=== PATIENT | male | born 1960 | race Caucasian/White ===

== ENCOUNTER 2016-12-21 13:22 | Emergency (ER) | payer OTHER ==
--- NOTE | 2016-12-21 14:20 | UC ---
Skin Complaint HPI - HPI Summary HPI Summary: Mr. Arellano is a pleasant 56 yo gentleman c/o feeling generally unwell since Tuesday (today is Tuesday), rash over arms, general ache, diarrhea (improving, no blood no melena), fatigue. Was at a bonfire Sat night, does not recall issues at that time. + hx tick bite last year, took 2 day doxycycline (no recent known bite). No urinary issues. No cough / sob / palpitations. - History of Current Complaint Chief Complaint: UCSkin Time Seen by Provider: 12/21/16 14:13 Stated Complaint: RASH Hx Obtained From: Patient Onset/Duration: Lasting Days - Allergy/Home Medications Allergies/Adverse Reactions: Allergies Allergy/AdvReac Type Severity Reaction Status Date / Time No Known Allergies Allergy Verified 12/21/16 14:05 Review of Systems Constitutional: Fatigue Skin: Rash Eyes: Negative ENT: Other - nasal congestion Respiratory: Negative Cardiovascular: Negative Gastrointestinal: Diarrhea Genitourinary: Negative Motor: Negative Neurovascular: Negative Musculoskeletal: Arthralgia Neurological: Negative Psychological: Negative All Other Systems Reviewed And Are Negative: Yes PMH/Surg Hx/FS Hx/Imm Hx Previously Healthy: Yes - tx'd for htn - Surgical History Surgical History: None - Family History Known Family History: Positive: Hypertension - Social History Alcohol Use: Occasionally Substance Use Type: None Smoking Status (MU): Never Smoked Tobacco - Immunization History Most Recent Influenza Vaccination: not yet this year Most Recent Tetanus Shot: not sure Most Recent Pneumonia Vaccination: none Physical Exam Triage Information Reviewed: Yes Appearance: Well-Nourished - sitting up. looks tired. nontoxic. NAD. Vital Signs: Initial Vital Signs Temp 97.4 F 12/21/16 14:06 Pulse 71 12/21/16 14:06 Resp 16 12/21/16 14:06 Pulse Ox 100 12/21/16 14:06 Eye Exam: Normal - grossly normal. watery eyes. ENT: Positive: TM dull, Other: - no pharyngeal redness, no sores noted Neck exam: Normal Neck: Positive: Supple, Nontender, No Lymphadenopathy - no adenopathy to neck, axillae Respiratory Exam: Normal Respiratory: Positive: Chest non-tender, Lungs clear, Normal breath sounds, No respiratory distress, No accessory muscle use Cardiovascular Exam: Normal Cardiovascular: Positive: RRR, No Murmur, Pulses Normal, Brisk Capillary Refill Abdominal Exam: Normal Abdomen Description: Positive: Nontender Bowel Sounds: Positive: Present Musculoskeletal Exam: Normal - grossly normal. moves all 4 ext's ok. c/o achiness. Neurological Exam: Normal - grossly normal Psychological Exam: Normal Skin Exam: Other - scattered papular nonblanching eruption, mainly arms and forearms. Also noted on legs. No visible on torso, neck, face. Course/Dx - Course Course Of Treatment: Etiology for eruption is unclear by immediate presentation. Consider viral exanthem vs other. Will check blood work (cbc, cmp, magnesium, lyme titer, crp, sed rate). F/u PCP or Tue. Sooner medical eval for worse or new problems in the meantime. Questions answered to the best of my ability. - Diagnoses Provider Diagnoses: rash Discharge - Discharge Plan Condition: Stable Disposition: HOME Patient Education Materials: Antihistamine (By mouth), Acute Rash (ED) Referrals: Amilcar Sauceda MD [Primary Care Provider] - Additional Instructions: Drink plenty of fluids. Avoid red wine, beer, hot showers until symptoms resolved. Double rinse clothing until symptoms resolved. Blood work today. Please follow up with Dr. Sauceda on or Tuesday for recheck. Seek medical attention sooner for worse or new problems in the meantime.
[2016-12-21 14:50] VITALS: BP 134/88
[2016-12-21 18:25] LABS: White Blood Count 2.7 10^3/ul (3.5-10.8)
[2016-12-21 18:28] LABS: Hematocrit 45 % (42-52); Mean Corpuscular Volume 92 fL (80-94)
[2016-12-21 18:40] LABS: Albumin 4.2 g/dL (3.2-5.2); C Reactive Protein 1.1 mg/L (< 5.00); Calcium 9.4 mg/dL (8.6-10.3); EGFR African American 114.1 (>60); EGFR Non-African American 88.7 (>60); Globulin 2.7 g/dL (2-4); Potassium 4.3 mmol/L (3.5-5.0); Total Bilirubin 0.6 mg/dL (0.2-1.0); Total Protein 6.9 g/dL (6.4-8.9)
[2016-12-21 18:42] LABS: Hemoglobin 15.5 g/dl (14.0-18.0); Mean Corpuscular HGB Conc 35 g/dl (31-36); Mean Corpuscular Hemoglobin 32 pg (27-31); Mean Platelet Volume 10 um3 (7.4-10.4); Red Blood Count 4.84 10^6/ul (4.0-5.4); Red Cell Distribution Width 12 % (10.5-15)
[2016-12-21 18:48] LABS: Comments Flag Yes
[2016-12-21 18:49] LABS: Add Diff/Slide Review? Manual Diff Added
--- NOTE | 2016-12-21 19:29 | UC ---
Progress - Progress Note Progress Note: CBC REVIEWED AND PT IS NEUTROPENIC AND THROMBOCYTOPENIC. ACCORDING TO OFFICE VISIT NOTE HE HAS HAD MALAISE FOR A COUPLE OF DAYS AND RASH OF UNCLEAR CAUSE. CALLED AND SPOKE TO PT ON THE PHONE. NAME AND CONFIRMED. ADVISED OF ABNORMAL LABS AND RECOMMENDED IMMEDIATE PRESENTATION TO [facility] [place] [facility] ER FOR FURTHER EVALUATION. PT VERBALIZED UNDERSTANDING AND STATES HE WILL GO. - VALERIA JIMENEZ MD.
[2016-12-21 19:53] LABS: Eosinophils % 1 % (0-6); Neutrophil % 34 % (38-83); RBC Morphology Normal (Normal); Reactive Lymph % 14 % (0-6)
[2016-12-21 19:54] LABS: Add Path Review? YES
[2016-12-21 20:02] LABS: Erythrocyte Sed Rate 17 mm/Hr (0-20)
--- NOTE | 2016-12-23 19:51 | UC ---
Progress - Progress Note Progress Note: CBC REVIEWED AND PT IS NEUTROPENIC AND THROMBOCYTOPENIC. ACCORDING TO OFFICE VISIT NOTE HE HAS HAD MALAISE FOR A COUPLE OF DAYS AND RASH OF UNCLEAR CAUSE. CALLED AND SPOKE TO PT ON THE PHONE. NAME AND CONFIRMED. ADVISED OF ABNORMAL LABS AND RECOMMENDED IMMEDIATE PRESENTATION TO [facility] [place] ER FOR FURTHER EVALUATION. PT VERBALIZED UNDERSTANDING AND STATES HE WILL GO. - VALERIA JIMENEZ MD. 12/23/16 CALL PATIENT SEE HOW HE IS DOING. LYME (-). HE WAS TOLD TO GO TO THE ER BY DR JIMENEZ.
== END 2016-12-21 14:45 | disposition home or self-care (01) ==
LOC: UCEAST 13:22
DX: R21 Rash and other nonspecific skin eruption (principal); I10 Essential (primary) hypertension
CPT/HCPCS: 36415; 80053; 83735; 85025; 85060; 85652; 86140; 86618; 99211; G0463

== ENCOUNTER 2016-12-21 20:06 | Emergency (ER) | payer OTHER ==
[2016-12-21 23:09] LABS: Hematocrit 41 % (42-52); Hemoglobin 14.6 g/dl (14.0-18.0); Mean Corpuscular HGB Conc 35 g/dl (31-36); Mean Corpuscular Hemoglobin 32 pg (27-31); Mean Corpuscular Volume 91 fL (80-94); Mean Platelet Volume 10 um3 (7.4-10.4); Red Blood Count 4.56 10^6/ul (4.0-5.4); Red Cell Distribution Width 12 % (10.5-15); White Blood Count 2.6 10^3/ul (3.5-10.8)
[2016-12-21 23:10] LABS: Comments Flag Yes
[2016-12-21 23:17] LABS: Albumin 4.1 g/dL (3.2-5.2); BUN/Creatinine Ratio 16.7 (8-20); Calcium 8.9 mg/dL (8.6-10.3); EGFR African American 132.9 (>60); EGFR Non-African American 103.3 (>60); Globulin 2.8 g/dL (2-4); Potassium 3.8 mmol/L (3.5-5.0); Total Bilirubin 0.6 mg/dL (0.2-1.0); Total Protein 6.9 g/dL (6.4-8.9)
[2016-12-21 23:30] VITALS: BP 140/95
[2016-12-22] MEDS ORDERED: DOXYcycline CAP(*) 100 MG PO ONE (00:31)
[2016-12-22 00:49] LABS: Urine Bilirubin Negative (Negative); Urine Glucose Negative (Negative); Urine Nitrite Negative (Negative)
--- NOTE | 2016-12-22 08:48 | UC ---
Progress - Progress Note Progress Note: Reviewed pt's blood results. I spoke with Luly Issa RN 08:35 Dr. Sauceda's office. He has an appt tomorrow at 14:[address] Sauceda. (Dr. Sauceda not in the office today.) Upon further chart review, I noted that Mr. Arellano did go to the ED last evening after initial blood tests came back (neutropenia). ED note not yet complete, but discharge instructions reviewed. Dr. Sauceda's office will call Mr. Arellano today to check on him.
--- NOTE | 2016-12-22 13:48 | ED ---
Martha Llanos Thomas, scribed for Gladys Baumann MD on 12/21/16 at 2145 . Complex/Multi-Sys Presentation - HPI Summary HPI Summary: The pt is a 56 y/o M accompanied by his family and presenting to the ED c/o malaise that began three days ago. He was seen today at [facility] and bloodwork was acquired for further evaluation of rash and systemic sxs of malaise, fatigue, myalgias, night sweats. When his test results revealed WBC 2.7 and Plt count 77 , he was called by [facility] and advised to present to the ED. Pt additionally c/o rash (onset two days ago), myalgia, night sweats, diarrhea (improving since onset), FERGUSON (5 days ago but none in the ED) and fatigue. Pt denies fever, SOB, cough, palpitations, dysuria, and hematuria. He reports that he was bit by a tick last year that was engorged and had to be removed by his MD, and took Doxycycline 2 tabs. He denies any recent known tick bites. PMHx: HTN, HLD. PSHx : none. SHx: no smoking, occasional alcohol use, no illicit drug use. FHx: HTN, alcoholism. He is on Lisinopril. 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 His next day of work is in two days. His PCP Dr. Sauceda. He denies alcohol use in the last five days. - History Of Current Complaint Chief Complaint: EDWeakness Time Seen by Provider: 12/21/16 21:35 Hx Obtained From: Patient, Family/Agricultural Specialist - , daughter in room Onset/Duration: Gradual Onset, Lasting Days - 3, Still Present Timing: Constant Severity Currently: Moderate Severity Initially: Moderate Character: Dull Aggravating Factor(s): None Alleviating Factor(s): None Associated Signs And Symptoms: Positive: Diarrhea, Other - POS: abnormal bloodwork (WBC 2.7, Plt count 77), rash, myalgia, night sweats, FERGUSON (5 days ago but none in the ED), fatigue; NEG: hematuria. Negative: SOB, Cough, Palpitations, Dysuria, Fever - Allergies/Home Medications Allergies/Adverse Reactions: Allergies Allergy/AdvReac Type Severity Reaction Status Date / Time No Known Allergies Allergy Verified 12/21/16 20:21 PMH/Surg Hx/FS Hx/Imm Hx Previously Healthy: No Endocrine/Hematology History: Denies: Hx Diabetes, Hx Thyroid Disease Cardiovascular History: Reports: Hx Hypercholesterolemia, Hx Hypertension - on meds Respiratory History: Denies: Hx Asthma, Hx Chronic Obstructive Pulmonary Disease (COPD) GI History: Denies: Hx Ulcer - Surgical History Surgery Procedure, Year, and Place: none Infectious Disease History: No Infectious Disease History: Denies: Hx Clostridium Difficile, Hx Hepatitis, Hx Human Immunodeficiency Virus (HIV), Hx of Known/Suspected MRSA, Hx Shingles, Hx Tuberculosis, Hx Known/ Suspected VRE, Hx Known/Suspected VRSA, History Other Infectious Disease, Traveled Outside the [place] in Last 30 Days - Family History Known Family History: Positive: Hypertension - Social History Occupation: Employed Full-time Lives: With Family Alcohol Use: Occasionally Substance Use Type: Reports: None Smoking Status (MU): Never Smoked Tobacco Review of Systems Positive: Fatigue, Skin Diaphoresis - night sweats, Other - POS: malaise (onset three days ago). Negative: Fever Negative: Palpitations Negative: Shortness Of Breath, Cough Positive: Diarrhea - improving Negative: dysuria, hematuria Positive: Myalgia Positive: Rash - macular papular, onset a couple days ago Positive: Headache - 5 days ago, none in the ED All Other Systems Reviewed And Are Negative: Yes Physical Exam Triage Information Reviewed: Yes Vital Signs On Initial Exam: Initial Vitals Temp Pulse Resp BP Pulse Ox 98.5 F 68 16 178/96 96 12/21/16 20:18 12/21/16 20:18 12/21/16 20:18 12/21/16 20:18 12/21/16 20:18 Vital Signs Reviewed: Yes Appearance: Positive: Well-Appearing - presents to ED for abnormal bloodwork, No Pain Distress, Well-Nourished Skin: Positive: Warm, Skin Color Reflects Adequate Perfusion, Other - There is a diffuse macular papular erythematous rash that blends with diffuse redness of skin. It is not on his genitals and is mostly on his sun-exposed areas. Head/Face: Positive: Normal Head/Face Inspection Eyes: Positive: Conjunctiva Clear ENT: Positive: Normal ENT inspection Respiratory/Lung Sounds: Positive: Clear to Auscultation, Breath Sounds Present , Other - No respiratory distress Cardiovascular: Positive: RRR, Pulses are Symmetrical in both Upper and Lower Extremities, Other - Brisk cap refill. Negative: Murmur Abdomen Description: Positive: Nontender, Soft Bowel Sounds: Positive: Present Male Genital Exam: Positive: normal genitalia Musculoskeletal: Positive: Strength/ROM Intact Neurological: Positive: Alert, Oriented to Person Place, Time, Facial Symmetry, Speech Normal, Other - Muscle tone normal Psychiatric: Positive: Normal - Myra Coma Scale Coma Scale Total: 15 Diagnostics - Vital Signs Vital Signs Temp Pulse Resp BP Pulse Ox 12/21/16 20:21 98.5 F 68 16 178/96 96 12/21/16 20:18 98.5 F 68 16 178/96 96 - Laboratory Lab Results: Lab Results 12/21/16 12/21/16 12/21/16 Range/Units 22:50 22:50 22:50 WBC 2.6 L (3.5-10.8) 10^3/ul RBC 4.56 (4.0-5.4) 10^6/ul Hgb 14.6 (14.0-18.0) g/dl Hct 41 L (42-52) % MCV 91 (80-94) fL MCH 32 H (27-31) pg MCHC 35 (31-36) g/dl RDW 12 (10.5-15) % Plt Count 72 L (150-450) 10^3/ul MPV 10 (7.4-10.4) um3 Neut % (Auto) 27.4 L (38-83) % Lymph % (Auto) 51.5 H (25-47) % [place] % (Auto) 18.7 H (1-9) % Eos % (Auto) 2.0 (0-6) % Baso % (Auto) 0.4 (0-2) % Absolute Neuts (auto) 0.7 L* (1.5-7.7) 10^3/ul Absolute Lymphs (auto) 1.3 (1.0-4.8) 10^3/ul Absolute Monos (auto) 0.5 (0-0.8) 10^3/ul Absolute Eos (auto) 0.1 (0-0.6) 10^3/ul Absolute Basos (auto) 0 (0-0.2) 10^3/ul Absolute Nucleated RBC 0.01 10^3/ul Nucleated RBC % 0.4 INR (Anticoag Therapy) 0.96 (0.89-1.11) Sodium 134 (133-145) mmol/L Potassium 3.8 (3.5-5.0) mmol/L Chloride 102 (101-111) mmol/L Carbon Dioxide 25 (22-32) mmol/L Anion Gap 7 (2-11) mmol/L BUN 13 (6-24) mg/dL Creatinine 0.78 (0.67-1.17) mg/dL Est GFR ( Amer) 132.9 (>60) Est GFR (Non-Af Amer) 103.3 (>60) BUN/Creatinine Ratio 16.7 (8-20) Glucose 96 (70-100) mg/dL Lactic Acid (0.5-2.0) mmol/L Calcium 8.9 (8.6-10.3) mg/dL Total Bilirubin 0.60 (0.2-1.0) mg/dL AST 48 H (13-39) U/L ALT 74 H (7-52) U/L Alkaline Phosphatase 61 (34-104) U/L C-Reactive Protein 1.00 (< 5.00) mg/L Total Protein 6.9 (6.4-8.9) g/dL Albumin 4.1 (3.2-5.2) g/dL Globulin 2.8 (2-4) g/dL Albumin/Globulin Ratio 1.5 (1-3) Urine Color Urine Appearance Urine pH (5-9) Ur Specific [place] (1.010-1.030) Urine Protein (Negative) Urine Ketones (Negative) Urine Blood (Negative) Urine Nitrate (Negative) Urine Bilirubin (Negative) Urine Urobilinogen (Negative) Ur Leukocyte Esterase (Negative) Urine Glucose (Negative) 12/21/16 12/22/16 Range/Units 22:50 00:39 WBC (3.5-10.8) 10^3/ul RBC (4.0-5.4) 10^6/ul Hgb (14.0-18.0) g/dl Hct (42-52) % MCV (80-94) fL MCH (27-31) pg MCHC (31-36) g/dl RDW (10.5-15) % Plt Count (150-450) 10^3/ul MPV (7.4-10.4) um3 Neut % (Auto) (38-83) % Lymph % (Auto) (25-47) % [place] % (Auto) (1-9) % Eos % (Auto) (0-6) % Baso % (Auto) (0-2) % Absolute Neuts (auto) (1.5-7.7) 10^3/ul Absolute Lymphs (auto) (1.0-4.8) 10^3/ul Absolute Monos (auto) (0-0.8) 10^3/ul Absolute Eos (auto) (0-0.6) 10^3/ul Absolute Basos (auto) (0-0.2) 10^3/ul Absolute Nucleated RBC 10^3/ul Nucleated RBC % INR (Anticoag Therapy) (0.89-1.11) Sodium (133-145) mmol/L Potassium (3.5-5.0) mmol/L Chloride (101-111) mmol/L Carbon Dioxide (22-32) mmol/L Anion Gap (2-11) mmol/L BUN (6-24) mg/dL Creatinine (0.67-1.17) mg/dL Est GFR ( Amer) (>60) Est GFR (Non-Af Amer) (>60) BUN/Creatinine Ratio (8-20) Glucose (70-100) mg/dL Lactic Acid 1.1 (0.5-2.0) mmol/L Calcium (8.6-10.3) mg/dL Total Bilirubin (0.2-1.0) mg/dL AST (13-39) U/L ALT (7-52) U/L Alkaline Phosphatase (34-104) U/L C-Reactive Protein (< 5.00) mg/L Total Protein (6.4-8.9) g/dL Albumin (3.2-5.2) g/dL Globulin (2-4) g/dL Albumin/Globulin Ratio (1-3) Urine Color Straw Urine Appearance Clear Urine pH 5.0 (5-9) Ur Specific [place] 1.006 L (1.010-1.030) Urine Protein Negative (Negative) Urine Ketones Negative (Negative) Urine Blood Negative (Negative) Urine Nitrate Negative (Negative) Urine Bilirubin Negative (Negative) Urine Urobilinogen Negative (Negative) Ur Leukocyte Esterase Negative (Negative) Urine Glucose Negative (Negative) Result Diagrams: 12/21/16 22:50 12/21/16 22:50 Lab Statement: Any lab studies that have been ordered have been reviewed, and results considered in the medical decision making process. Re-Evaluation - Re-Evaluation First Eval Re-Evaluation Time: 00:11 Change: Unchanged Comment: The patient was informed of the test results and was informed that he needs an urgent follow up with his PCP. Complex Multi-Symp Course/Dx Assessment/Plan: The pt is a 56 y/o M accompanied by his family and presenting to the ED c/o malaise that began three days ago. He was seen today at [facility] and bloodwork was acquired. When his test results revealed WBC 2.7 and Plt count 77 , he was called by [facility] and advised to present to the ED. Pt additionally c/o rash (onset two days ago), myalgia, night sweats, diarrhea (improving since onset), FERGUSON (5 days ago but none in the ED) and fatigue. Pt denies fever, SOB, cough, palpitations, dysuria, and hematuria. He reports that he was bit by a tick last year and took Doxycycline. He denies any recent known tick bites. PMHx : HTN, HLD. PSHx: none. SHx: no smoking, occasional alcohol use, no illicit drug use. FHx: HTN, alcoholism. He is on Lisinopril. 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 His next day of work is in two days. His PCP Dr. Sauceda. He denies alcohol use in the last five days. Bloodwork shows taken at [facility] ED reveals WBC 2.6, Plt count 77, AST 48, and ALT 74. Patient s medication reviewed this visit. Blood pressure noted. Patient is diagnosed with pancytopenia and absolute neutropenia. The pt is also diagnosed with elevated blood pressure under poor control. Patient will be discharged with follow up from his PCP Dr. Sauceda. Pt is agreeable with this plan. - Diagnoses Provider Diagnoses: Elevated BP under poor control, Pancytopenia, Absolute neutropenia - Physician Notifications Discussed Care Of Patient With: Juan Carlos Espinosa Time Discussed With Above Provider: 23:38 Instructed by Provider To: Other - We discussed patient care. He recommends to discharge with Doxycycline with close follow up from the patient's PCP, since pt is afebrile neutropenic, and neutrophils are not less than 500. Discharge - Discharge Plan Condition: Stable Disposition: HOME Prescriptions: DOXYcycline CAP(*) [DOXYcycline 100MG CAP(*)] 100 mg PO BID #20 cap Patient Education Materials: Neutropenia (ED), Thrombocytopenia (ED) Referrals: Amilcar Sauceda MD [Primary Care Provider] - 2 Days Additional Instructions: Dr. Baumann has advised you that your are neutropenic and you need definite follow up with Dr. Sauceda this week. We have given you your first dose of doxycycline, beginning empiric treatment for possible Lyme disease, pending the Lyme titer. Dr. Baumann discussed your case with the hospitalist, Dr. Sher. Take your temperature every morning and night. Buy a thermometer if you do not have one. If you have a temperature above 100.5, then you need urgent medical attention and please go to the Emergency Department. RETURN TO THE EMERGENCY DEPARTMENT FOR ANY NEW OR WORSENING SYMPTOMS The documentation as recorded by the Martha azevedo Thomas accurately reflects the service I personally performed and the decisions made by me, Gladys Baumann MD.
== END 2016-12-22 00:25 | disposition home or self-care (01) ==
LOC: ED 20:06
DX: D70.9 Neutropenia, unspecified (principal); R19.7 Diarrhea, unspecified; D61.818 Other pancytopenia; R21 Rash and other nonspecific skin eruption; R53.83 Other fatigue; I10 Essential (primary) hypertension; R51 Headache
CPT/HCPCS: 36415; 80053; 81003; 83605; 85025; 85610; 86140; 87040; 99283; A9270-GY

== ENCOUNTER 2019-03-31 15:58 | Emergency (ER) | payer OTHER ==
[2019-03-31 16:45] VITALS: BP 190/120
--- NOTE | 2019-03-31 16:47 | UC ---
Bite Injury/Animal HPI - HPI Summary HPI Summary: 58-year-old male comes in with a chief complaint of a tick bite to his right upper arm that has a rash. 4 days ago patient had a tick in the arm that was removed at home with a pair tweezers. Pretty sure he got the whole tick. In the last days developed a rash and he's also started feeling somewhat ill with some body aches and chills. No other obvious source of infection. - History of Current Complaint Chief Complaint: UCSkin Stated Complaint: TICK BITE Time Seen by Provider: 03/31/19 16:36 Pain Intensity: 0 - Allergies/Home Medications Allergies/Adverse Reactions: Allergies Allergy/AdvReac Type Severity Reaction Status Date / Time No Known Allergies Allergy Verified 03/31/19 16:34 Home Medications: Home Medications Atorvastatin* [Lipitor 10 MG*] 1 dose PO DAILY 03/31/19 [History Confirmed 03/31] Losartan TAB* [Cozaar TAB*] 25 mg PO DAILY 03/31/19 [History Confirmed 03/31/19] PMH/Surg Hx/FS Hx/Imm Hx Previously Healthy: Yes Endocrine History: Dyslipidemia Cardiovascular History: Hypertension - Surgical History Surgical History: Yes Surgery Procedure, Year, and Place: none - Family History Known Family History: Positive: Hypertension - Social History Alcohol Use: Weekly Substance Use Type: None Smoking Status (MU): Never Smoked Tobacco - Immunization History Most Recent Influenza Vaccination: not yet this year Most Recent Tetanus Shot: not sure Most Recent Pneumonia Vaccination: none Review of Systems All Other Systems Reviewed And Are Negative: Yes Constitutional: Positive: Chills, Other - SEE HPI Skin: Positive: Other - SEE HPI ENT: Positive: Negative Respiratory: Positive: Negative Cardiovascular: Positive: Negative Gastrointestinal: Positive: Negative Motor: Positive: Negative Neurovascular: Positive: Negative Musculoskeletal: Positive: Myalgia Neurological: Positive: Negative Psychological: Positive: Negative Is Patient Immunocompromised?: No Physical Exam Triage Information Reviewed: Yes Appearance: Well-Appearing, No Pain Distress, Well-Nourished Vital Signs: Initial Vital Signs Temp 97.5 F 03/31/19 16:32 Pulse 93 03/31/19 16:32 Resp 16 03/31/19 16:32 BP 180/121 03/31/19 16:32 Pulse Ox 98 03/31/19 16:32 Vital Signs Reviewed: Yes Eye Exam: Normal Eyes: Positive: Conjunctiva Clear Neck: Positive: Supple Respiratory: Positive: No respiratory distress Musculoskeletal: Positive: Strength Intact, ROM Intact Neurological: Positive: Alert, Muscle Tone Normal Psychological: Positive: Age Appropriate Behavior Skin: Positive: Other - On the right upper arm over the triceps there is a 4 cm x 3 cm area of blanching erythema surrounding the tick bite site. Bite Injury Course/Dx - Course Course Of Treatment: With the rash around the tick bite site in the patient starting to feel ill I consider this Lyme disease. Will treat with doxycycline 100 mg by mouth twice a day for 14 days. Patient is to follow-up his regular doctor get reevaluated sooner if worsening questions or concerns. We discussed the elevated blood pressure patient is on blood pressure medication. He will follow-up his primary care doctor for the hypertension. - Differential Dx/Diagnosis Provider Diagnosis: Tick bite of right upper arm with infection, Lyme disease, Hypertension Discharge ED - Sign-Out/Discharge Documenting (check all that apply): Patient Departure All imaging exams completed and their final reports reviewed: No Studies - Discharge Plan Condition: Stable Disposition: HOME Prescriptions: DOXYcycline CAP(*) [DOXYcycline 100MG CAP(*)] 100 mg PO BID #28 cap Patient Education Materials: Lyme Disease (ED), Tick Bite (ED), Hypertension ( ED) Referrals: Amilcar Sauceda MD [Primary Care Provider] - Additional Instructions: FOLLOW UP WITH YOUR DOCTOR FOR YOUR HYPERTENSION THIS WEEK AND IF NOT COMPLETELY IMPROVED. GET REEVALUATED SOONER IF NOT IMPROVED OR WORSE OR ANY QUESTIONS OR CONCERNS. - Billing Disposition and Condition Condition: STABLE Disposition: Home
== END 2019-03-31 16:55 | disposition home or self-care (01) ==
LOC: UCEAST 15:58
DX: S40.861A Insect bite (nonvenomous) of right upper arm, initial encounter (principal); A69.20 Lyme disease, unspecified; L08.9 Local infection of the skin and subcutaneous tissue, unspecified; E78.5 Hyperlipidemia, unspecified; I10 Essential (primary) hypertension; Z79.899 Other long term (current) drug therapy; W57.XXXA Bitten or stung by nonvenomous insect and other nonvenomous arthropods, initial encounter; Y92.9 Unspecified place or not applicable
CPT/HCPCS: 99212; G0463